=== PATIENT | female | born 1980 | race American Indian/Alaskan Native ===

== ENCOUNTER 2017-09-24 22:29 | Emergency (ER) | payer OTHER ==
[2017-09-25] MEDS ORDERED: NORCO 10/325 PO ONE (00:11)
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
[2017-09-25] MEDS ORDERED: MOTRIN PO ONE (01:16)
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
[2017-09-25 01:40] LABS: HCG Qualitative,Urine Negative (Negative)
[2017-09-25 01:42] LABS: Bacteria,Urine 2+ /HPF (Negative); Bilirubin,Urine NEG (Negative); Blood,Urine NEG (Negative); Color,Urine Yellow (Yellow); Protein,Urine <15 mg/dL mg/dL (Negative); Urobilinogen,Urine < 2.0 mg/dL (<2.0)
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
[2017-09-25] MEDS ORDERED: FLEXERIL PO ONE (03:12)
[2017-09-25 05:08] VITALS: BP 133/78
== END 2017-09-25 04:15 | disposition home or self-care (01) ==
LOC: ED 22:29
DX: S13.4XXA Sprain of ligaments of cervical spine, initial encounter (principal); S39.012A Strain of muscle, fascia and tendon of lower back, initial encounter; S27.9XXA Injury of unspecified intrathoracic organ, initial encounter; S86.912A Strain of unspecified muscle(s) and tendon(s) at lower leg level, left leg, initial encounter; F17.200 Nicotine dependence, unspecified, uncomplicated; V49.49XA Driver injured in collision with other motor vehicles in traffic accident, initial encounter; Y93.89 Activity, other specified; Y92.89 Other specified places as the place of occurrence of the external cause; Y99.8 Other external cause status
CPT/HCPCS: 70450; 71250; 72125; 72128; 72131; 81001; 81025; 93005; 93010